=== PATIENT | male | born 1960 | race Caucasian/White ===

== ENCOUNTER 2018-11-30 10:01 | Inpatient (IN) ==
[2018-11-30] MEDS ORDERED: LORazepam 2 MG/1 ML VIAL IV STA (10:32)
[2018-11-30] MEDS ORDERED: SODIUM CHLORIDE 0.9% 1,000 ML IV STA (10:32)
[2018-11-30] MEDS ORDERED: PROMETHAZINE 25 MG/1 ML VIAL IM STA (10:32)
[2018-11-30 11:33] LABS: Basophils % 0.7 % (0.0-0.8); Eosinophils # 0.1 10*3/uL (0.0-0.87); Eosinophils % 2.9 % (0.00-10.9); Hemoglobin 11.5 GM/DL (14.0-18.0); Immature Granulocytes % 0.4 %; Immature Granulocytes Absolute 0.02 #; Lymphocytes % 21.9 % (21.2-54.2); Mean Corpuscular HGB Conc 31.9 GM/DL (32-36); Mean Corpuscular Volume 89.8 FL (87-102); Mean Platelet Volume 11.5 FL (9.6-12.0); Monocytes % 7.7 % (1.7-12.7); Neutrophils % 66.4 % (38.7-73.9); Red Blood Count 4.01 MC/CUMM (3.8-5.5); Red Cell Distribution Width 13.4 % (9.3-17.3); White Blood Count 4.5 T/CUMM (4-12)
[2018-11-30 11:43] LABS: Platelet Count 92 T/CUMM (130-400)
[2018-11-30 11:55] LABS: Albumin 2.8 G/DL (3.4-5.0); Bilirubin,Total 0.4 MG/DL (0.2-1.0); Calcium 8.8 MG/DL (8.5-10.1); Total Protein 8.3 G/DL (6.4-8.3)
[2018-11-30 12:19] LABS: Apearance,Urine CLEAR (Clear); Bilirubin,Urine Negative (Negative); Blood, Urine Negative (Negative); Glucose,Urine (UA) >=500 mg/dL (Negative); Ketones,Urine Negative (Negative); Mucus,Urine Occasional /LPF (Occasional); Nitrite,Urine Negative (Negative); Protein,Urine Negative; RBC,Urine 2 /HPF (0-4); Squamous Epithelial Cell,Urine Occasional /HPF (0-10); Urine Color Yellow (Yellow); Urine Specific Gravity 1.028 (1.001-1.035); Urine Urobilinogen < 2.0 EU/DL (0.2-1.0); WBC,Urine 5 /HPF (0-6)
[2018-11-30 12:29] LABS: Barbiturates Screen,Urine Positive (Negative); Benzodiazepines Screen,Urine Positive (Negative); Cannabinoid Screen,Urine Negative (Negative); Opiate Screen,Urine Negative (Negative); Phencyclidine Screen,Urine Negative (Negative)
[2018-11-30 12:45] LABS: Hypochromasia 1+; Platelet Estimate Decreased
[2018-11-30] MEDS ORDERED: ONDANSETRON 4 MG/2 ML VIAL ONE (12:45)
[2018-11-30] MEDS ORDERED: ONDANSETRON 4 MG/2 ML VIAL IV STA (13:00)
[2018-11-30] MEDS ORDERED: LORazepam 2 MG/1 ML VIAL IV PRN (14:59)
[2018-11-30] MEDS ORDERED: traZODone 50 MG TABLET PO PRN (14:59)
[2018-11-30] MEDS ORDERED: ONDANSETRON 4 MG TABLET PO PRN (14:59)
[2018-11-30] MEDS ORDERED: NICOTINE 21 MG/24 HR PATCH TRANSDERM PRN (14:59)
[2018-11-30] MEDS ORDERED: cloNIDine 0.1 MG TABLET PO PRN (15:04)
[2018-11-30] MEDS ORDERED: HydrOXYzine PAMOATE 25 MG CAPSULE PO PRN (15:04)
[2018-11-30] MEDS ORDERED: ALUMINUM/MAGNES/SIMETH MAX STR 30 ML UDCUP PO PRN (15:04)
[2018-11-30] MEDS ORDERED: METHOCARBAMOL 750 MG TABLET PO PRN (15:04)
[2018-11-30] MEDS ORDERED: DICYCLOMINE 10 MG CAPSULE PO PRN (15:04)
[2018-11-30] MEDS ORDERED: SENNA 8.6 MG TABLET PO PRN (15:04)
[2018-11-30] MEDS ORDERED: THIAMINE INJ 100 MG, FOLIC ACID INJ 1 MG, MULTIVITAMIN INJ 10 ML in SODIUM CHLORIDE 0.9... IV ONE (15:04)
[2018-11-30] MEDS ORDERED: LOPERAMIDE 2 MG CAPSULE PO PRN (15:04)
[2018-11-30] MEDS ORDERED: rOPINIRole 1 MG TABLET PO PRN (15:04)
[2018-11-30] MEDS ORDERED: GLUCAGON 1 MG VIAL IM PRN (15:14)
[2018-11-30] MEDS ORDERED: DEXTROSE 50% 25 GM/50 ML VIAL IV PRN (15:14)
[2018-11-30] MEDS ORDERED: SODIUM CHLORIDE 0.9% 1,000 ML IV SCH (15:30)
[2018-11-30] MEDS: INSULIN REGULAR 100 UNIT/ML SUBCUT SCH ×2 (16:28→21:12)
[2018-11-30] MEDS ORDERED: ENOXAPARIN 40 MG/0.4 ML SYRINGE SUBCUT SCH (16:30)
[2018-11-30] MEDS ORDERED: INSULIN REGULAR 100 UNIT/ML SUBCUT SCH (16:30)
[2018-11-30] MEDS: chlordiazePOXIDE 25 MG CAPSULE PO SCH ×2 (16:37→21:08)
[2018-12-01] MEDS: chlordiazePOXIDE 25 MG CAPSULE PO SCH ×3 (02:42→08:32)
[2018-12-01] MEDS: ACETAMINOPHEN 325 MG TABLET PO PRN ×2 (02:44→07:58)
[2018-12-01 06:10] LABS: Basophils % 0.9 % (0.0-0.8); Eosinophils # 0.1 10*3/uL (0.0-0.87); Eosinophils % 3.3 % (0.00-10.9); Hemoglobin 10.7 GM/DL (14.0-18.0); Immature Granulocytes % 0.3 %; Immature Granulocytes Absolute 0.01 #; Lymphocytes # 1.1 10*3/uL (1.4-4.0); Lymphocytes % 31.3 % (21.2-54.2); Mean Corpuscular HGB Conc 32.4 GM/DL (32-36); Mean Corpuscular Volume 88.9 FL (87-102); Mean Platelet Volume 11.9 FL (9.6-12.0); Monocytes % 7.2 % (1.7-12.7); Red Blood Count 3.71 MC/CUMM (3.8-5.5); Red Cell Distribution Width 13.4 % (9.3-17.3); White Blood Count 3.4 T/CUMM (4-12)
[2018-12-01 06:14] LABS: Platelet Count 76 T/CUMM (130-400)
[2018-12-01 06:20] LABS: Calcium 8.4 MG/DL (8.5-10.1); Osmolality,Calculated 278.7 MOS/KG (273-304)
[2018-12-01 06:24] LABS: % Iron Saturation 22.5 % (18-50); Albumin 2.5 G/DL (3.4-5.0); Bilirubin,Direct 0.1 MG/DL (0.0-0.20); Bilirubin,Indirect 0.7 MG/DL (0.0-1.0); Bilirubin,Total 0.8 MG/DL (0.2-1.0); Ferritin 35.5 ng/ml (26-388); Total Protein 7.5 G/DL (6.4-8.3)
[2018-12-01 06:31] LABS: Vitamin B12 653 PG/ML (211-911)
[2018-12-01 06:35] LABS: Platelet Estimate Decreased
[2018-12-01 06:36] LABS: Hypochromasia Slight
[2018-12-01 07:35] LABS: Sedimentation Rate-Westergren 61 MM/HR (0-20)
[2018-12-01] MEDS: INSULIN REGULAR 100 UNIT/ML SUBCUT SCH ×2 (07:55→13:08)
[2018-12-01] MEDS ORDERED: THIAMINE 100 MG TABLET PO SCH (09:00)
[2018-12-01] MEDS ORDERED: LISINOPRIL 20 MG TABLET PO SCH (09:00)
[2018-12-01] MEDS ORDERED: FOLIC ACID 1 MG TABLET PO SCH (09:00)
[2018-12-01] MEDS ORDERED: MULTIVITAMIN (CENTRUM) TABLET PO SCH (09:00)
[2018-12-01] MEDS ORDERED: METHOCARBAMOL 500 MG TABLET PO PRN (10:43)
[2018-12-01] MEDS ORDERED: DICYCLOMINE 10 MG CAPSULE PO PRN (10:43)
[2018-12-01 11:44] VITALS: BP 123/59
[2018-12-02 09:52] LABS: Hemoglobin A1 (Alkaline) 97.6 % (96.5-98.5); Hemoglobin A2 (Alkaline) 2.4 % (1.5-3.5)
== END 2018-12-01 12:50 | DRG 897 ==
LOC: N.ED 10:01 → N.EDINP 15:32 → N.5E 15:37
PROVIDERS: ADMIT Internal Medicine; ATTEND Internal Medicine